=== PATIENT | female | born 1995 | race Caucasian/White ===

== ENCOUNTER 2023-07-04 10:01 | Emergency (ER) | payer OTHER ==
[2023-07-04 10:07] VITALS: BP 138/90; PULSE 78; RESP 20; TEMP 98.1; BMI 40.7
[2023-07-04 12:53] LABS: BASO % 0.2 % (0-2.0); EOS % 1.8 % (0-4.5); EPI CELLS >36 /uL (0-25.1); HEMATOCRIT 33.2 % (32.4-45.2); HEMOGLOBIN 11.3 GM/dL (10.7-15.3); HYALINE CASTS 1 /uL (0-3.1); LYMPH % 13.9 % (8-40); MCH 27.1 pg (25.7-33.7); MEAN CELL VOLUME 79.6 fl (80-96); MEAN PLT VOLUME 9.2 fl (7.5-11.1); MONO % 7.1 % (3.8-10.2); PH,URINE 7.5 (5.0-8.0); PLATELET COUNT 169 10^3/uL (134-434); RBC 4.17 M/mm3 (3.60-5.2); RDW 14.5 % (11.6-15.6); URINE APPEARANCE CLOUDY; URINE BACTERIA 1128 /uL (0-1359); URINE BILIRUBIN NEGATIVE (NEGATIVE); URINE COLOR YELLOW; URINE GLUCOSE (UA) NEGATIVE (NEGATIVE); URINE KETONE NEGATIVE (NEGATIVE); URINE LEUK ESTERASE 2+ (NEGATIVE); URINE NITRITE NEGATIVE (NEGATIVE); URINE PROTEIN 2+ (NEGATIVE); URINE RBC 10 /uL (0-23.9); URINE UROBILINOGEN 0.2 mg/dL (0.2-1.0); URINE WBC 488 /uL (0-25.8); WHITE BLOOD COUNT 7.2 K/mm3 (4.0-10.0)
[2023-07-04 13:01] LABS: HCG,QUALITATIVE URINE Positive
[2023-07-04 13:25] LABS: POTASSIUM 3.9 mmol/L (3.5-5.1)
[2023-07-04 13:27] LABS: CALCIUM 8.4 mg/dL (8.5-10.1)
[2023-07-04 13:28] LABS: ALBUMIN 3.1 g/dl (3.4-5.0); BLOOD UREA NITROGEN 5.1 mg/dL (7-18)
[2023-07-04 13:31] LABS: CREATININE 0.4 mg/dL (0.55-1.3)
[2023-07-04 13:32] LABS: BILIRUBIN,TOTAL 0.4 mg/dL (0.2-1)
[2023-07-04 13:33] LABS: TOT PROT 6.4 g/dl (6.4-8.2)
== END 2023-07-04 16:33 | disposition home or self-care (01) ==
LOC: JER 10:01
DX: O20.9 Hemorrhage in early pregnancy, unspecified (principal); O23.41 Unspecified infection of urinary tract in pregnancy, first trimester; R82.71 Bacteriuria; O26.891 Other specified pregnancy related conditions, first trimester; R10.30 Lower abdominal pain, unspecified; Z3A.01 Less than 8 weeks gestation of pregnancy
CPT/HCPCS: 36415; 76817-TC; 80053; 81003; 84702; 84703; 85025; 86850; 86900; 86901; 99284-25